=== PATIENT | female | born 1990 | race Caucasian/White ===

== ENCOUNTER 2023-11-21 06:26 | Day surgery (SDC) | payer BC, SELFPAY ==
--- NOTE | 2023-09-02 10:42 | CM ---
Patient is scheduled for an elective L THR on 10/03/23- she is a same day patient. Spoke with patient prior to surgery. Introduced role of Orthopedic Navigator. Patient reports that she lives with her and grandfather in a one story home.
There are five steps to enter. She currently functions independently and uses a cane. She also has a hip kit, toilet rails, firm cushion and rolling walker. She has never had VN services. PCP is Sloane Sharif.
Discussed orthopedic program and post surgical plans. Reviewed that she will have VN services initially (medicare.gov website and ratings reviewed) and will then start outpatient PT. Patient selects VN (face sheet faxed to VN to facilitate
confirmation of benefits) for her home care needs and is unsure where will go for outpatient PT.
Patient is in agreement with plan and states that her mother will be home with her.
Patient will complete online education.
Plan: Orthopedic Navigator will remain available to assist with the care of patient and will reassess discharge needs after surgery.
[2023-09-13 12:19] VITALS: BMI 39.5
[2023-09-13 13:37] LABS: Hemoglobin 12.2 g/dL (12.0-16.0); Mean Corpuscular Hgb 31.3 pg (27.0-31.0); Mean Corpuscular Volume 94.9 fL (81.0-99.0); Mean Platelet Volume 11.9 fL (7.4-10.4); Platelet Count 234 10^3/uL (130-400); Red Cell Dist. Width 14.3 % (11.5-14.5); White Blood Cell Count 11.5 10^3/uL (4.8-10.8)
[2023-09-13 13:49] LABS: ALT (SGPT) 57 U/L (0-35); AST (SGOT) 57 U/L (14-36); Albumin 4.5 g/dl (3.5-5.0); Alkaline Phosphatase 86 U/L (38-126); Blood Urea Nitrogen 15 mg/dl (7-17); Calcium 10.4 mg/dl (8.4-10.2); Carbon Dioxide 25 mmol/L (22-30); Chloride 106 mmol/L (98-107); Estimated Creatinine Clearance > 125 ml/min; Glucose 110 mg/dl (70-99); Potassium 4.5 mmol/L (3.5-5.1); Sodium 140 mmol/L (135-145); Total Bilirubin 0.9 mg/dl (0.2-1.3); Total Protein 7.1 g/dl (6.3-8.2); eGFR > 60.00
[2023-09-14 09:49] LABS: Glycohemoglobin (HgbA1c) 6.1 % (4.0-5.6)
--- NOTE | 2023-11-07 11:26 | VNURNOTE ---
Called patient. Reviewed plan for SDS on 11/20. [facility] to follow per joint protocol. The patient stated she has outpt PT scheduled at [facility] to start on Friday 11/24. Referral placed in [facility]. [facility] Intake notified.
[2023-11-11 14:04] VITALS: BMI 39.2
[2023-11-11 14:37] LABS: Hematocrit 39.5 % (37.0-47.0); Hemoglobin 13.3 g/dL (12.0-16.0); Mean Corp Hgb Conc. 33.7 g/dL (33.0-37.0); Mean Corpuscular Hgb 31.5 pg (27.0-31.0); Mean Corpuscular Volume 93.6 fL (81.0-99.0); Mean Platelet Volume 12.4 fL (7.4-10.4); Platelet Count 233 10^3/uL (130-400); Red Blood Cell Count 4.22 10^6/uL (4.20-5.40); Red Cell Dist. Width 13.5 % (11.5-14.5); White Blood Cell Count 15.2 10^3/uL (4.8-10.8)
[2023-11-11 15:53] LABS: ALT (SGPT) 86 U/L (0-35); AST (SGOT) 69 U/L (14-36); Albumin 4.8 g/dl (3.5-5.0); Alkaline Phosphatase 93 U/L (38-126); Blood Urea Nitrogen 20 mg/dl (7-17); Calcium 10.6 mg/dl (8.4-10.2); Carbon Dioxide 19 mmol/L (22-30); Chloride 104 mmol/L (98-107); Estimated Creatinine Clearance > 125 ml/min; Glucose 122 mg/dl (70-99); Potassium 4.7 mmol/L (3.5-5.1); Sodium 140 mmol/L (135-145); Total Bilirubin 1.1 mg/dl (0.2-1.3); Total Protein 7.4 g/dl (6.3-8.2); eGFR > 60.00
[2023-11-15 12:30] VITALS: BMI 39.2
[2023-11-21] VITALS (12 sets, daily range): BP systolic 100–156; BP diastolic 64–97; PULSE 77; O2SAT 98; BMI 38.7
[2023-11-21] MEDS: TYLENOL 650 MG PO (07:46)
[2023-11-21 08:05] LABS: Glucose - Point of Care 130 mg/dl (70-99)
[2023-11-21 11:27] LABS: Glucose - Point of Care 180 mg/dl (70-99)
[2023-11-21] MEDS: ROXICODONE 5 MG PO (12:10)
[2023-11-21] MEDS: ANCEF 5 IV (13:03)
--- NOTE | 2023-11-21 16:37 | OR.RPT ---
Addendum entered and electronically signed by Jim Aquino MD 11/21/23 16:45:
Procedure code 90793 with 22 modifier for complexity for BMI >35kg/m2 which required additional time (20 minutes) for positioning, exposure, and implanting the components.
Original Note:
Operative Report
Operative Report
Orthopaedic Surgery Operative Note
DATE OF OPERATION: 11/21/2023
PREOPERATIVE DIAGNOSES: Osteonecrosis, left hip
POSTOPERATIVE DIAGNOSES: Same
OPERATION PERFORMED: Left total hip arthroplasty.
SURGEON: Jim Aquino MD
DRAFTER REFRIGERATION: Jake Abreu PA-C who helped with patient and limb positioning and retraction
ANESTHESIA: Spinal
COMPLICATIONS: None.
ESTIMATED BLOOD LOSS: 50 mL.
DRAINS: None
SPECIMEN: None
FINDINGS: Collapse of femoral head with delamination of articular cartilage over superior formal head. Extensive pannus like synnovitis about the femoral head and acetabulum.
IMPLANTS:
Biomet G7 Acetabular Shell, cluster hole, size 50
Biomet G7 Highly Crosslinked PE Liner, neutral
Meliton M/L Taper femoral stem, size 7.5 with standard neck length and standard offset
Biolox Ceramic Head, size 36mm -3.5mm
INDICATIONS: The patient presented to my office with debilitating left hip pain due to osteonecrosis, stage IV. She has history of cancer treated with chemotherapy and corticosteroids, presumably the culpret. She had right hip pain with earlier
stage osteonecrosis and was evaluated if she would be a candidate for hip preservation and [place] [facility] who recommended against hip preservation given the serverity of her osteonecrosis. We reviewed the natural history of this problem, as well
as the risks, benefits, and alternatives of various treatment options. The patient exhausted all nonoperative treatment options and wished to proceed with hip replacement surgery. The patient understood the risks which included, but were not limited
to, bleeding, infection, failure to relieve pain, more pain than preop, damage to blood vessels and nerves, need for reoperation, mechanical failure of the implants, wound healing problems, stiffness, instability, blood clot, pulmonary embolism,
myocardial infarction, pneumonia, arrhythmia, CVA, and . The patient accepted these risks and wished to proceed. In light of her young age, hip replacement revision may be required in the future. All questions were answered, and informed
consent was obtained.
PROCEDURE IN DETAIL: The patient was identified in the preoperative holding area. The left hip was identified as the operative site. The patient was taken in the operating room and transferred to the operative table. Spinal anesthesia was performed.
IV antibiotics and tranexamic acid were administered. The patient was placed in the lateral position with Stulberg hip positioners. Axillary roll was placed. The down leg was well padded. All bony prominences were well padded. The operative limb was
prepped and draped in the usual sterile fashion.
Time out was performed. A posterolateral approach to the hip was used. The skin incision was centered over the greater trochanter. This was taken down sharply through subcutaneous tissues. Meticulous hemostasis was achieved throughout the case with
electrocautery. We split the fascia angela in line with skin incision. I split the gluteus cheryl bluntly. We cauterized all crossing vessels as we split it. I palpated the sciatic nerve and made sure it was well posterior in the operative field. It
was protected throughout the case.
I performed a partial bursectomy to identify the short external rotators. The gluteus medius and minimus were identified and retracted anteriorly. I incised the piriformis tendon and conjoint tendon at their insertions. These were tagged for later
repair. I then performed a trapezoidal capsulotomy. The edges were tagged for later repair. I referenced the cut edge of the capsular flap to 2 fixed points on the greater trochanter for assistance with recreation of limb length and offset. I then
dislocated the hip posteriorly. I performed a femoral neck osteotomy approximately 5 mm above the lesser trochanter, as per preoperative templating. The femoral head was collapsed with delaminating cartilage. It measured 45 mm in outer diameter from
A to P. The distance between the neck cut and center of the femoral head was measured to be 32.5mm. I placed a curve hohmann retractor over the anterior lip of the acetabulum between the labrum and the anterior hip capsule. A second retractor was
placed inferiorly just distal to the transverse acetabular ligament. Circumferential view of the acetabulum was achieved. I incised the patulous capsule, labrum and pulvinar with electrocautery. I started with a 45 mm reamer and reamed down to the
medial wall. I took extra care to avoid injury due to the relatively softer bone from osteonecrosis vs sclerotic osteoarthritis bone. I then sequentially reamed up to a 49mm reamer. This gave a nice bed of bleeding bone with excellent column support
anteriorly and posteriorly. I impacted the acetabular shell in approximately 40 degrees of abduction and 20 degrees of anteversion. I matched the anteversion of the transverse acetabular ligament. I also made sure that the anterior rim of the socket
was not proud of the anterior wall to minimize the chance of iliopsoas tendinitis. I confirmed the cup was well-seated. I then impacted a neutral liner and confirmed it was well seated with the locking mechanism.
On the femoral side, I use a box osteotome to open the proximal starting point. I found the canal with a Charnley awl and a lateralizing reamer. I then used the Meliton M/L taper broaches sequentially to prepare the femoral canal. The size 7.5 came
to a stop at the desired level and had excellent axial and rotational stability. We trialed with a trial ball head. The hip was taken through a complete range of motion. It was noted to be stable in extension without impingement. It was stable in
the position of sleep and in flexion with internal rotation. The limb length and offset were checked compared to the capsular flap and was appropriate. The measured length between the lesser trochanter and center of the femoral head was 35mm.
I removed the trials. I impacted the femoral implant to match the [place] version. It had excellent axial and rotational stability. Trial ball head was placed, and I reduced the hip and took the hip through a complete range of motion. There was no
impingement in external rotation and extension. Position of sleep was stable. At 90 degrees of flexion and slight adduction, the hip could be internally rotated to 90 degrees with no subluxation. I palpated the sciatic nerve, which was tension free
and unharmed. Based on our capsular flap measurement, we had restored the offset and leg length. The trial ball head was removed, and the final ball head was impacted onto a clean and dry Latif taper. The hip was reduced.
A dilute betadine soak was performed for approximately 3 minutes, and then the hip was copiously irrigated. I repaired the capsule, piriformis, and conjoint tendon with #2 Ethibond to drill holes in the greater trochanter. Local anesthetic was
injected. The fascia angela was closed with #1 PDS in running fashion. The subcutaneous tissues were closed with 2-0 PDS in running fashion. The skin was reapproximated with 3-0 Monocryl subcuticular suture. I placed a Prineo dressing followed by a
Mepilex Ag dressing. The patient awoke from anesthesia without difficulty. Sponge and instrument counts were correct x2 at the end of the case.
I was present and participated in the entire procedure. I checked leg length at the ankles after transfer on the bed which was equal. The patient was sent to the recovery room in stable condition.
João Aquino MD
== END 2023-11-21 13:37 | disposition home or self-care (01) ==
LOC: SDS 06:26
PROVIDERS: ATTENDING PHYSICIAN Orthopaedic Surgery; FAMILY PHYSICIAN Physician Assistant
DX: M87.9 Osteonecrosis, unspecified (principal); M16.12 Unilateral primary osteoarthritis, left hip
CPT/HCPCS: 27130; 36415; 73502; 80053; 82962; 83036; 85027; 87070; 93005; 97162; C1776

== ENCOUNTER 2024-02-20 06:04 | Day surgery (SDC) | payer BC, SELFPAY ==
[2024-01-22 10:33] VITALS: BMI 37.9
[2024-01-22 10:52] LABS: Glycohemoglobin (HgbA1c) 5.5 % (4.0-5.6); Hemoglobin 12.2 g/dL (12.0-16.0); Mean Corpuscular Hgb 30.3 pg (27.0-31.0); Platelet Count 264 10^3/uL (130-400); Red Blood Cell Count 4.02 10^6/uL (4.20-5.40); Red Cell Dist. Width 14.1 % (11.5-14.5); White Blood Cell Count 11.4 10^3/uL (4.8-10.8)
[2024-01-22 11:57] LABS: ALT (SGPT) 38 U/L (0-35); AST (SGOT) 39 U/L (14-36); Albumin 4.5 g/dl (3.5-5.0); Alkaline Phosphatase 73 U/L (38-126); Blood Urea Nitrogen 17 mg/dl (7-17); Calcium 10.1 mg/dl (8.4-10.2); Carbon Dioxide 23 mmol/L (22-30); Chloride 103 mmol/L (98-107); Estimated Creatinine Clearance > 125 ml/min; Glucose 123 mg/dl (70-99); Potassium 4.7 mmol/L (3.5-5.1); Sodium 140 mmol/L (135-145); Total Bilirubin 0.9 mg/dl (0.2-1.3); Total Protein 6.9 g/dl (6.3-8.2); eGFR > 60.00
--- NOTE | 2024-02-10 12:23 | VNURNOTE ---
Patient is scheduled for an elective R CAROL on 02/20/24- she is a same day patient with Dr Aquino. Spoke with patient prior to surgery. Introduced role of [facility] Liaison. Patient reports that she lives with her spouse in a MULTI story home.
She has a raised toilet seat, cane and rolling walker.
She had [facility] services after prior orthopedic surgery a few months ago.
PCP is Dr Sloane Baldwin
Discussed SDS joint protocol and post surgical plans. Depending on OR time, patient may have [facility] the following day. Patient aware and verbalizes understanding.
Tentative [facility] 02/20. Patient will have outpatient PT at [facility]. Scheduled for 02/23.
Patient is in agreement with plan and states that hre mother will pick her up day of surgery. He spouse will be home with her. Advised to bring RW day of surgery. Referral placed in [facility].
Plan: [facility] day after surgery then outpt PT on 02/23
[2024-02-14 10:56] VITALS: BMI 37.9
[2024-02-20] VITALS (15 sets, daily range): BP systolic 80–156; BP diastolic 53–109; PULSE 89; O2SAT 97; BMI 37.9
[2024-02-20] MEDS: CELEBREX 200 MG PO (06:27)
[2024-02-20] MEDS: TYLENOL 650 MG PO (06:27)
[2024-02-20 06:33] LABS: Glucose - Point of Care 144 mg/dl (70-99)
--- NOTE | 2024-02-20 07:02 | W.DS.TRANS ---
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
-
Discharge Instructions:
Sleep Apnea Risk Low
Discharge Diagnosis/Procedures R CAROL Aquino 02/20/24
Diet As tolerated
Activity With Walker
Driving Restrictions No driving
Other Services PT
Instructions:
Stand-Alone Forms: SDS Total Hip and Knee D/C
Changes to Home Medications: Yes
Discharge Medications:
DC Medications w/original date entered in [employer]
albuterol sulfate 90 mcg/actuation aerosol inhaler 1 - 2 puff inhalation ONCE PRN exercise 11/15/23
cetirizine 5 mg tablet 5 mg PO DAILY PRN allergies 11/15/23
diphenhydramine HCl 25 mg capsule (Benadryl) 50 mg PO HS PRN allergies 11/15/23
fluticasone propionate 50 mcg/actuation nasal spray,suspension 1 - 2 spray intranasal DAILY PRN allergies 11/15/23
losartan 25 mg tablet 25 mg PO DAILY 11/15/23
semaglutide 1 mg/dose (4 mg/3 mL) subcutaneous pen injector (Ozempic) 1 mg SC QWEEK 11/15/23
mupirocin 2 % topical ointment 1 applic topical BID 02/14/24
acetaminophen 500 mg tablet 1,000 mg (2 x 500 mg) PO QID #0 tabs 02/20/24
aspirin 325 mg tablet 325 mg PO DAILY blood clot prevention #1 tab 02/20/24
celecoxib 100 mg capsule 100 mg PO BID Anti-inflammatory #14 caps 02/20/24
dexamethasone 4 mg tablet 4 mg PO BID inflammation #6 tabs 02/20/24
docusate sodium 100 mg capsule (Colace) 100 mg PO BID stool softner #1 cap 02/20/24
magnesium hydroxide 400 mg/5 mL oral suspension (Milk of Magnesia) 30 ml PO HS PRN Constipation #1 mL 02/20/24
oxycodone 5 mg tablet 5 mg PO Q6H PRN 1 tab moderate pain, 2 tabs severe pain #30 tabs 02/20/24
sennosides 8.6 mg tablet (Senokot) 17.2 mg (2 x 8.6 mg) PO BID laxative #2 tabs 02/20/24
Home Medication Changes
aspirin 325 mg tablet 325 mg PO DAILY blood clot prevention #1 tab 02/20/24
celecoxib 100 mg capsule 100 mg PO BID Anti-inflammatory #14 caps 02/20/24
dexamethasone 4 mg tablet 4 mg PO BID inflammation #6 tabs 02/20/24
docusate sodium 100 mg capsule (Colace) 100 mg PO BID stool softner #1 cap 02/20/24
magnesium hydroxide 400 mg/5 mL oral suspension (Milk of Magnesia) 30 ml PO HS PRN Constipation #1 mL 02/20/24
oxycodone 5 mg tablet 5 mg PO Q6H PRN 1 tab moderate pain, 2 tabs severe pain #30 tabs 02/20/24
sennosides 8.6 mg tablet (Senokot) 17.2 mg (2 x 8.6 mg) PO BID laxative #2 tabs 02/20/24
Pending Results: No
[2024-02-20 09:28] LABS: Glucose - Point of Care 171 mg/dl (70-99)
[2024-02-20] MEDS: ROXICODONE 5 MG PO (10:59)
[2024-02-20] MEDS: ANCEF 5 IV (11:00)
--- NOTE | 2024-02-20 19:45 | OR.RPT ---
Operative Report
Operative Report
Orthopaedic Surgery Operative Note
DATE OF OPERATION: 02/20/2024
PREOPERATIVE DIAGNOSES: Osteonecrosis, right hip
POSTOPERATIVE DIAGNOSES: Same
OPERATION PERFORMED: Right total hip arthroplasty (63859 with 22 modifier)
SURGEON: Jim Aquino MD
RECREATION THERAPY AIDE: Jake Roque PA-C who assisted with patient positioning and retraction
ANESTHESIA: Spinal
COMPLICATIONS: None.
ESTIMATED BLOOD LOSS: 50 mL.
DRAINS: None
SPECIMEN: None
FINDINGS: Advanced articular cartilage wear on the femoral head and acetabulum.
IMPLANTS:
Biomet G7 Acetabular Shell, cluster hole, size 50
Biomet G7 Highly Crosslinked PE Liner, neutral
Meliton M/L Taper femoral stem, size 7.5 with standard neck length and standard offset
Biolox Ceramic Head, size 36mm -3.5mm
INDICATIONS: The patient presented to my office with debilitating right hip pain due to osteonecrosis, likely from prior chemotherapy and corticosteroids. She previously underwent left CAROL with me and did very well. Her right hip was noted to have
osteonecrosis. She was not a candidate for hip preservation after evaluation at [facility]. We reviewed the natural history of this problem, as well as the risks, benefits, and alternatives of various treatment options. The patient exhausted all
nonoperative treatment options and wished to proceed with hip replacement surgery. The patient understood the risks which included, but were not limited to, bleeding, infection, failure to relieve pain, more pain than preop, damage to blood vessels
and nerves, need for reoperation, mechanical failure of the implants, wound healing problems, stiffness, instability, blood clot, pulmonary embolism, myocardial infarction, pneumonia, arrhythmia, CVA, and . The patient accepted these risks and
wished to proceed. All questions were answered, and informed consent was obtained.
PROCEDURE IN DETAIL: The patient was identified in the preoperative holding area. The right hip was identified as the operative site. The patient was taken in the operating room and transferred to the operative table. Spinal anesthesia was
performed. IV antibiotics and tranexamic acid were administered. The patient was placed in the lateral position with Stulberg hip positioners. Axillary roll was placed. The down leg was well padded. All bony prominences were well padded. The
operative limb was prepped and draped in the usual sterile fashion.
Time out was performed. A posterolateral approach to the hip was used. The skin incision was centered over the greater trochanter. This was taken down sharply through subcutaneous tissues. Meticulous hemostasis was achieved throughout the case with
electrocautery. We split the fascia angela in line with skin incision. I split the gluteus cheryl bluntly. We cauterized all crossing vessels as we split it. I palpated the sciatic nerve and made sure it was well posterior in the operative field. It
was protected throughout the case.
I performed a partial bursectomy to identify the short external rotators. The gluteus medius and minimus were identified and retracted anteriorly. I incised the piriformis tendon and conjoint tendon at their insertions. These were tagged for later
repair. I then performed a trapezoidal capsulotomy. The edges were tagged for later repair. There was extensive synnovitis which was excised. I referenced the cut edge of the capsular flap to 2 fixed points on the greater trochanter for assistance
with recreation of limb length and offset. I then dislocated the hip posteriorly. I performed a femoral neck osteotomy approximately 5 mm above the lesser trochanter, as per preoperative templating. The femoral head was noted to have articular
cartilage collapse. The head measured 45 mm in outer diameter. The distance between neck cut and the center of femoral head was 32.5. I placed a curve hohmann retractor over the anterior lip of the acetabulum between the labrum and the anterior hip
capsule. A second retractor was placed inferiorly just distal to the transverse acetabular ligament. Circumferential view of the acetabulum was achieved. I incised the labrum and pulvinar with electrocautery. I started with a 45 mm reamer and reamed
down to the medial wall. I then sequentially reamed up to a 49mm reamer. This gave a nice bed of bleeding bone with excellent column support anteriorly and posteriorly. I impacted the acetabular shell in approximately 40 degrees of abduction and 20
degrees of anteversion. I matched the anteversion of the transverse acetabular ligament. I also made sure that the anterior rim of the socket was not proud of the anterior wall to minimize the chance of iliopsoas tendinitis. I confirmed the cup was
well-seated. I then impacted a neutral liner and confirmed it was well seated with the locking mechanism.
On the femoral side, I use a box osteotome to open the proximal starting point. I found the canal with a Charnley awl and a lateralizing reamer. I then used the Meliton M/L taper broaches sequentially to prepare the femoral canal. The size 7.5 came
to a stop at the desired level and had excellent axial and rotational stability. We trialed with a trial ball head. The hip was taken through a complete range of motion. It was noted to be stable in extension without impingement. It was stable in
the position of sleep and in flexion with internal rotation. The limb length and offset were checked compared to the capsular flap and was appropriate. The measured length between the neck cut and center of the trial femoral head was 35mm.
I removed the trials. I impacted the femoral implant to match the [place] version. It had excellent axial and rotational stability. Trial ball head was placed, and I reduced the hip and took the hip through range of motion. There was no impingement
in external rotation and extension. Position of sleep was stable. At 90 degrees of flexion and slight adduction, the hip could be internally rotated to 90 degrees with no subluxation. I palpated the sciatic nerve, which was tension free and
unharmed. Based on our capsular flap measurement, we had restored the offset and leg length. The trial ball head was removed, and the final ball head was impacted onto a clean and dry Latif taper. The hip was reduced.
A dilute betadine soak was performed for approximately 3 minutes, and then the hip was copiously irrigated. I repaired the capsule, piraformis, and conjoint tendon with #2 Ethibond to drill holes in the greater trochanter. Local anesthetic was
injected. The fascia angela was closed with #1 PDS in running fashion. The subcutaneous tissues were closed with 2-0 PDS in running fashion. The skin was reapproximated with 3-0 Monocryl subcuticular suture. I placed a Prineo dressing followed by a
Mepilex Ag dressing. The patient awoke from anesthesia without difficulty. Sponge and instrument counts were correct x2 at the end of the case.
I was present and participated in the entire procedure. The patient was sent to the recovery room in stable condition.
Of note, 22 modifier was added fro BMI >35kg/m2 which added 20 additional minutes for positioning, exposure, and implanting the components.
João Aquino MD
== END 2024-02-20 11:59 | disposition home or self-care (01) ==
LOC: SDS 06:04
PROVIDERS: ATTENDING PHYSICIAN Orthopaedic Surgery; FAMILY PHYSICIAN Physician Assistant
DX: M16.11 Unilateral primary osteoarthritis, right hip (principal); M87.9 Osteonecrosis, unspecified; Z94.81 Bone marrow transplant status
CPT/HCPCS: 27130; 36415; 73502; 80053; 82962; 83036; 85027; 87070; 97162; 97530; C1776